=== PATIENT | male | born 1960 | race Caucasian/White ===

== ENCOUNTER 2019-01-09 16:27 | Outpatient (CLI) | payer OTHER ==
[~2019-01-09 16:27] MED LIST: ZYRTEC10 MG PO
== END 2019-01-09 16:42 | disposition home or self-care (01) ==
LOC: RAD 16:27
DX: M54.5 Low back pain (principal)

== ENCOUNTER 2021-06-07 09:46 | Outpatient (CLI) | payer OTHER | END 2021-06-07 09:57 | disposition home or self-care (01) | LOC: MRI 09:46 | PROVIDERS: ATTEND Physical Medicine & Rehabilitation Sports Medicine | DX: M54.51 Vertebrogenic low back pain (principal); M54.16 Radiculopathy, lumbar region | CPT/HCPCS: 72148 ==